=== PATIENT | female | born 1970 | race Caucasian/White ===

== ENCOUNTER 2023-03-10 13:28 | Emergency (ER) | payer BC ==
[2023-03-10 14:47] LABS: Specific Gravity 1.011 (1.005-1.030); Urine Bacteria None Seen /HPF (<20); Urine Bilirubin NEGATIVE (Negative); Urine Blood Trace (Negative); Urine Clarity Clear (Clear); Urine Color Light-Yellow (Yellow); Urine Glucose NEGATIVE (Negative); Urine Protein NEGATIVE (Negative); Urine RBC <5 /HPF (None Seen); Urine Urobilinogen Normal (Normal); Urine pH 5.5 (5.0-7.0)
--- NOTE | 2023-03-10 14:52 | RAD REPORT ---
EXAM DESCRIPTION: CT - Abdomen Pelvis Wo Contrast - 03/10/2023 2:35 pm CLINICAL HISTORY: Abdominal pain COMPARISON: 2014 TECHNIQUE: Computed axial tomography of the abdomen and pelvis was obtained. IV and oral contrast we re not requested. All CT scans are performed using dose optimization technique as appropriate and may include automated exposure control or mA/KV adjustment according to patient size. FINDINGS: The evaluation of solid organs, vessels and bowel is limited secondary to the lack of con trast administration. The liver, spleen, pancreas, adrenals and kidneys appear grossly normal. Large amount stool within the colon. No evidence diverticulitis. No adnexal mass. Hysterectomy. Cholecystectomy IMPRESSION: Large amount of stool within the colon
[2023-03-10] MEDS ORDERED: FENTANYL CITR 100 MCG/2 ML ONE (14:56)
[2023-03-10] MEDS ORDERED: NA CHLORIDE 0.9% 1,000 ML ONE (14:57)
[2023-03-10] MEDS ORDERED: ONDANSETRON 4 MG/2 ML VIAL ONE ×2 (14:57→19:07)
[2023-03-10 15:06] LABS: Absolute Lymphocytes (CBC) 2.9 K/uL (0.7-4.9); Hematocrit 35.9 % (36.0-45.0); Lymphocytes % 44.1 % (15.3-44.8); MCV 79.8 fL (80-100); MPV 7.4 fL (7.6-11.3); RBC Red Blood Cell Count 4.51 M/uL (3.86-4.86)
[2023-03-10 15:33] LABS: Albumin 4.3 g/dL (3.4-5.0); Bilirubin Total 0.5 mg/dL (0.2-1.0); Potassium 2.8 mEq/L (3.5-5.1)
[2023-03-10] MEDS ORDERED: LACTULOSE 20 GM/30 ML UCUP ONE (16:32)
[2023-03-10] MEDS ORDERED: FLEET ENEMA ADULT PR ONE (16:32)
[2023-03-10] MEDS ORDERED: POTASSIUM CL SA 10 MEQ TAB PO ONE (16:54)
[2023-03-10] MEDS ORDERED: MAGNESIUM CITRATE 300 ML BOT ONE (18:02)
[2023-03-10] MEDS ORDERED: BISACODYL 10 MG RECTAL SUPP ONE (19:06)
[2023-03-10] MEDS ORDERED: PROMETHAZINE INJ 25 MG/ML AMP ONE (19:18)
--- NOTE | 2023-03-10 21:12 | ER ---
Nurse's Notes [facility] Name: Miriam Renee Age: 52 yrs Sex: Female : 1970 Arrival Date: 03/10/2023 Time: 13:28 Bed 14 Private MD: Diagnosis: Constipation, unspecified Presentation: 03/10 14:07 Chief complaint: Patient states: N/V R sided abdominal pain, constipation, chills, strange ph w/ urination and vaginal spotting x 1 week. Coronavirus screen: Vaccine status: Patient reports being unvaccinated. Ebola Screen: No symptoms or risks identified at this time. Initial Sepsis Screen: Does the patient meet any 2 criteria? No. Patient's initial sepsis screen is negative. Does the patient have a suspected source of infection? No. Patient's initial sepsis screen is negative. Risk Assessment: Do you want to hurt yourself or someone else? Patient reports no desire to harm self or others. Onset of symptoms was March 10, 2023. 14:07 Method Of Arrival: Ambulatory ph 14:07 Acuity: EDY 3 ph Historical: - Allergies: 14:10 NSAIDS (Non-Steroidal Anti-Inflammatory Drug); ph 14:10 Aspirin; ph 14:10 Hydroxychloroquine; ph 14:10 Iodinated Contrast Media - IV Dye; ph 14:10 Iodine; ph 14:10 Imitrex; ph - Immunization history:: Adult Immunizations unknown. - Social history:: Smoking status: Patient denies any tobacco usage or history of. - Family history:: not pertinent. Screenin:00 [facility] ED Fall Risk Assessment (Adult) History of falling in the last 3 months, nj1 including since admission No falls in past 3 months (0 pts) Confusion or Disorientation No (0 pts) Intoxicated or Sedated No (0 pts) Impaired Gait No (0 pts) Mobility Assist Device Used No (0 pt) Altered Elimination No (0 pt) Score/Fall Risk Level 0 - 2 = Low Risk Oriented to surroundings, Maintained a safe environment, Hourly rounding (assess needs \T\ fall precautionary measures) done. Abuse screen: Denies threats or abuse. Denies injuries from another. Nutritional screening: No deficits noted. Nutritional screening: No deficits noted. 15:02 Tuberculosis screening: No symptoms or risk factors identified. [facility] Assessment: 14:50 General: Appears in no apparent distress. uncomfortable, Behavior is calm, cooperative, nj1 appropriate for age. Pain: Complains of pain in abdomen Pain currently is 10 out of 10 on a pain scale. Neuro: Level of Consciousness is awake, alert, obeys commands, Oriented to person, place, time, situation. Cardiovascular: Patient's skin is warm and dry. Respiratory: Airway is patent Respiratory effort is even, unlabored. GI: Reports nausea, vomiting. 16:24 Reassessment: No changes from previously documented assessment. Patient and/or family ll1 updated on plan of care and expected duration. Pain level reassessed. Patient is alert, oriented x 3, equal unlabored respirations, skin warm/dry/pink. 16:49 Reassessment: No changes from previously documented assessment. Patient and/or family ll1 updated on plan of care and expected duration. Pain level reassessed. Patient is alert, oriented x 3, equal unlabored respirations, skin warm/dry/pink. 16:58 Reassessment: No changes from previously documented assessment. Patient and/or family ll1 updated on plan of care and expected duration. Pain level reassessed. 18:00 Reassessment: Patient appears in no apparent distress at this time. No changes from nj1 previously documented assessment. Patient and/or family updated on plan of care and expected duration. Pain level reassessed. Patient is alert, oriented x 3, equal unlabored respirations, skin warm/dry/pink. 19:00 Reassessment: Patient appears in no apparent distress at this time. No changes from nj1 previously documented assessment. Patient and/or family updated on plan of care and expected duration. Pain level reassessed. Patient is alert, oriented x 3, equal unlabored respirations, skin warm/dry/pink. 19:59 Reassessment: Patient appears in no apparent distress at this time. No changes from nj1 previously documented assessment. Patient and/or family updated on plan of care and expected duration. Pain level reassessed. Patient is alert, oriented x 3, equal unlabored respirations, skin warm/dry/pink. 22:11 Reassessment: Pt took Golytely home. Per Dr. German, pt Ok to take home and take. cm10 Charge nurse and powerhouse electrician aware. Pt instructed on how to take at home. Vital Signs: 14:07 BP 143 / 79; Pulse 98; Resp 20; Temp 99.5; Pulse Ox 95% ; Weight 70.31 kg; Height 5 ft. ph 5 in. ; Pain 10/10; 15:35 Pain 9/10; nj1 16:57 BP 145 / 73; Pulse 81; Pulse Ox 97% on R/A; ll1 18:00 BP 134 / 74; Pulse 87; Resp 17; Pulse Ox 95% on R/A; nj1 19:00 BP 135 / 59; Pulse 91; Resp 18; Pulse Ox 96% on R/A; Pain 9/10; nj1 19:56 BP 140 / 85; Pulse 86; Resp 16; Pulse Ox 97% on R/A; Pain 9/10; nj1 20:00 BP 131 / 80; Pulse 84; Resp 16; Pulse Ox 97% on R/A; cm10 22:12 BP 125 / 74; Pulse 84; Resp 16; Pulse Ox 96% ; cm10 14:07 Body Mass Index 25.79 (70.31 kg, 165.1 cm) ph 14:07 Pain Scale: Adult ph 15:35 Pain Scale: Adult nj1 19:00 Pain Scale: Adult nj1 19:56 Pain Scale: Adult nj1 ED Course: 13:33 Patient arrived in ED. kj1 13:36 Arm band placed on. ll1 13:46 Wojciech Stone MD is Attending Physician. rt 14:10 Triage completed. ph 14:21 Alyx Weinberg, RN is Primary Nurse. nj1 14:37 CT Abd/Pelvis - Without Contrast In Process Unspecified. EDMS 14:45 Inserted saline lock: 22 gauge in right forearm, using aseptic technique. Blood ds4 collected. 14:50 Provided Education on: fall precautions. nj1 14:50 Patient has correct armband on for positive identification. Bed in low position. Call [facility] light in reach. Adult w/ patient. 21:11 Luis Armando Harvey MD is Referral Physician. cp 22:00 No provider procedures requiring assistance completed. IV discontinued, intact, cm10 bleeding controlled, No redness/swelling at site. Pressure dressing applied. Administered Medications: 14:53 Drug: NS 0.9% IV 1000 ml Route: IV; Rate: 1 bolus; Site: right forearm; [facility] 16:31 Follow up: Response: No adverse reaction; IV Status: Completed infusion; IV Intake: ll1 1000ml 14:54 Drug: Ondansetron IVP 4 mg Route: IVP; Site: right forearm; nj1 16:30 Follow up: Response: No adverse reaction ll1 14:56 Drug: fentaNYL (PF) IVP 100 mcg Route: IVP; Site: right forearm; nj1 15:35 Follow up: Pain 9/10 Adult; Response: No adverse reaction; Pain is decreased nj1 16:30 Drug: Lactulose PO 30 grams Volume: 45 ml; Route: PO; ll1 17:50 Follow up: Response: No adverse reaction db 16:30 Drug: Fleet Enema RI 133 ml Route: RI; ll1 17:50 Follow up: Response: No adverse reaction db 16:49 Drug: Potassium Chloride PO 40 mEq Route: PO; ll1 17:50 Follow up: Response: No adverse reaction db 17:57 Drug: Magnesium Citrate PO Liquid 300 ml Route: PO; ll1 18:54 Follow up: Response: No adverse reaction nj1 19:04 Drug: Dulcolax RI Suppository 10 mg Route: RI; nj1 20:03 Follow up: Response: No adverse reaction; Other; No BM yet nj1 19:11 Drug: Promethazine IVP 12.5 mg Route: IVP; Site: right forearm; nj1 20:03 Follow up: Response: No adverse reaction; Nausea is decreased nj1 19:19 Not Given (Phenergan ordered insteadd): Ondansetron IVP 4 mg IVP once; over 2 minutes nj1 22:08 Drug: Golytely 240 ml Route: PO; cm10 22:10 Follow up: Response: No adverse reaction cm10 Medication: 22:01 VIS not applicable for this client. cm10 Intake: 16:31 IV: 1000ml; Total: 1000ml. ll1 Outcome: 21:12 Discharge ordered by . cp 22:12 Discharged to home ambulatory, with family. cm10 22:12 Condition: good 22:12 Discharge instructions given to patient, Instructed on discharge instructions, follow up and referral plans. medication usage, Demonstrated understanding of instructions, follow-up care, medications, Prescriptions given X 2. 22:12 Patient left the ED. cm10 Signatures: Dispatcher [employer] EDMS Tyree Walden ds4 Maddy Shin RN RN ph Lorenzo Shafer PA PA Liv Tyler kj1 Patsy Segundo, RN RN ll1 Delores Goodwin RN RN db Wojciech Stone MD MD rt Alyx Weinberg RN RN nj1 Candis Lugo RN RN cm10 Corrections: (The following items were deleted from the chart) 20:04 19:56 BP 140 / 85; Pulse 86bpm; Resp 16bpm; Pulse Ox 97% RA; nj1 nj1
--- NOTE | 2023-03-10 21:13 | EDPHYS ---
Physician Documentation [facility] Name: Miriam Renee Age: 52 yrs Sex: Female : 1970 Arrival Date: 03/10/2023 Time: 13:28 Bed 14 Private MD: ED Physician Wojciech Stone HPI: 03/10 16:05 This 52 yrs old Female presents to ER via Ambulatory with complaints of Nausea/Vomiting.rt 16:05 Patient presents to the ED with 1 week of right-sided abdominal pain, nausea, vomiting. rt Patient states that she is constipated, has not had a good bowel movement reportedly 3 weeks. She reports that she has had vaginal spotting despite having had a prior hysterectomy. Reports a small amount of hematuria, none currently. Symptoms are moderate severity, aching nature, nonradiating, no other aggravating alleviating factors.. Historical: - Allergies: 14:10 NSAIDS (Non-Steroidal Anti-Inflammatory Drug); ph 14:10 Aspirin; ph 14:10 Hydroxychloroquine; ph 14:10 Iodinated Contrast Media - IV Dye; ph 14:10 Iodine; ph 14:10 Imitrex; ph - Immunization history:: Adult Immunizations unknown. - Social history:: Smoking status: Patient denies any tobacco usage or history of. - Family history:: not pertinent. ROS: 16:05 Constitutional: Negative for fever, chills, and weight loss, Cardiovascular: Negative rt for chest pain, palpitations, and edema, Respiratory: Negative for shortness of breath, cough, wheezing, and pleuritic chest pain, MS/Extremity: Negative for injury and deformity, Skin: Negative for injury, rash, and discoloration, Neuro: Negative for headache, weakness, numbness, tingling, and seizure, Psych: Negative for depression, anxiety, suicide ideation, homicidal ideation, and hallucinations. 16:05 Abdomen/GI: Positive for abdominal pain, nausea and vomiting, constipation. 16:05 : Positive for hematuria, burning with urination. Exam: 16:05 Constitutional: This is a well developed, well nourished patient who is awake, alert, rt and in no acute distress. Head/Face: Normocephalic, atraumatic. Chest/axilla: Normal chest wall appearance and motion. Nontender with no deformity. No lesions are appreciated. Cardiovascular: Regular rate and rhythm with a normal S1 and S2. No gallops, murmurs, or rubs. Normal PMI, no JVD. No pulse deficits. Respiratory: Lungs have equal breath sounds bilaterally, clear to auscultation and percussion. No rales, rhonchi or wheezes noted. No increased work of breathing, no retractions or nasal flaring. Skin: Warm, dry with normal turgor. Normal color with no rashes, no lesions, and no evidence of cellulitis. MS/ Extremity: Pulses equal, no cyanosis. Neurovascular intact. Full, normal range of motion. Neuro: Awake and alert, GCS 15, oriented to person, place, time, and situation. Cranial nerves II-XII grossly intact. Motor strength 5/5 in all extremities. Sensory grossly intact. Cerebellar exam normal. Normal gait. Psych: Awake, alert, with orientation to person, place and time. Behavior, mood, and affect are within normal limits. 16:05 Abdomen/GI: Tenderness diffusely, no rebound, guarding, distention. Vital Signs: 14:07 BP 143 / 79; Pulse 98; Resp 20; Temp 99.5; Pulse Ox 95% ; Weight 70.31 kg; Height 5 ft. ph 5 in. ; Pain 10/10; 15:35 Pain 9/10; nj1 16:57 BP 145 / 73; Pulse 81; Pulse Ox 97% on R/A; ll1 18:00 BP 134 / 74; Pulse 87; Resp 17; Pulse Ox 95% on R/A; nj1 19:00 BP 135 / 59; Pulse 91; Resp 18; Pulse Ox 96% on R/A; Pain 9/10; nj1 19:56 BP 140 / 85; Pulse 86; Resp 16; Pulse Ox 97% on R/A; Pain 9/10; nj1 20:00 BP 131 / 80; Pulse 84; Resp 16; Pulse Ox 97% on R/A; cm10 22:12 BP 125 / 74; Pulse 84; Resp 16; Pulse Ox 96% ; cm10 14:07 Body Mass Index 25.79 (70.31 kg, 165.1 cm) ph 14:07 Pain Scale: Adult ph 15:35 Pain Scale: Adult nj1 19:00 Pain Scale: Adult nj1 19:56 Pain Scale: Adult nj1 MDM: 14:12 Patient medically screened. rt 03/10 14:23 Order name: CBC with Diff; Complete Time: 15:33 rt 03/10 14:23 Order name: CMP; Complete Time: 15:33 rt 03/10 14:23 Order name: Lipase; Complete Time: 15:33 rt 03/10 14:23 Order name: Urinalysis w/ reflexes; Complete Time: 14:54 rt 03/10 14:23 Order name: CT Abd/Pelvis - Without Contrast; Complete Time: 14:54 rt 03/10 14:23 Order name: IV Saline Lock; Complete Time: 14:43 rt 03/10 14:23 Order name: Labs collected and sent; Complete Time: 14:43 rt 03/10 19:46 Order name: Misc. Order: soap suds enema; Complete Time: 21:26 cp Administered Medications: 14:53 Drug: NS 0.9% IV 1000 ml Route: IV; Rate: 1 bolus; Site: right forearm; nj1 16:31 Follow up: Response: No adverse reaction; IV Status: Completed infusion; IV Intake: ll1 1000ml 14:54 Drug: Ondansetron IVP 4 mg Route: IVP; Site: right forearm; nj1 16:30 Follow up: Response: No adverse reaction ll1 14:56 Drug: fentaNYL (PF) IVP 100 mcg Route: IVP; Site: right forearm; nj1 15:35 Follow up: Pain 9/10 Adult; Response: No adverse reaction; Pain is decreased nj1 16:30 Drug: Lactulose PO 30 grams Volume: 45 ml; Route: PO; ll1 17:50 Follow up: Response: No adverse reaction db 16:30 Drug: Fleet Enema OK 133 ml Route: OK; ll1 17:50 Follow up: Response: No adverse reaction db 16:49 Drug: Potassium Chloride PO 40 mEq Route: PO; ll1 17:50 Follow up: Response: No adverse reaction db 17:57 Drug: Magnesium Citrate PO Liquid 300 ml Route: PO; ll1 18:54 Follow up: Response: No adverse reaction nj1 19:04 Drug: Dulcolax OK Suppository 10 mg Route: OK; nj1 20:03 Follow up: Response: No adverse reaction; Other; No BM yet nj1 19:11 Drug: Promethazine IVP 12.5 mg Route: IVP; Site: right forearm; nj1 20:03 Follow up: Response: No adverse reaction; Nausea is decreased nj1 19:19 Not Given (Phenergan ordered insteadd): Ondansetron IVP 4 mg IVP once; over 2 minutes nj1 22:08 Drug: Golytely 240 ml Route: PO; cm10 22:10 Follow up: Response: No adverse reaction cm10 Disposition Summary: 03/10/23 21:12 Discharge Ordered Location: Home cp Problem: an acute exacerbation cp Symptoms: have improved cp Condition: Stable cp Diagnosis - Constipation, unspecified cp Followup: cp - With: Luis Armando Harvey MD - When: 2 - 3 days - Reason: Recheck today's complaints Discharge Instructions: - Discharge Summary Sheet cp - Constipation, Adult cp Forms: - Medication Reconciliation Form cp - Thank You Letter cp - Antibiotic Education cp - Prescription Opioid Use cp - Patient Portal Instructions cp Prescriptions: - Golytely [id number] -5.86 gram Oral Recon Soln - take 240 milliliter by ORAL route every 10 minutes until fecal effluent is cp clear; 4000 milliliter; Refills: 0, Product Selection Permitted - promethazine 25 mg Oral Tablet - take 1 tablet by ORAL route every 6 hours As needed; 20 tablet; Refills: 0, cp Product Selection Permitted Signatures: Dispatcher [employer] Maddy Johnson, RN RN Lorenzo Mclean PA PA cp Patsy Segundo RN RN ll1 Wojciech Stone MD MD rt Alyx Weinberg RN RN nj1 Candis Lugo RN RN cm10 Delores Goodwin RN db
[2023-03-10] MEDS ORDERED: GOLYTELY 4000 ML ONE (22:12)
[2023-03-10 22:48] VITALS: TEMP 99.5
[2023-03-10 22:59] VITALS: BP 125/74; O2SAT 96
== END 2023-03-10 22:12 | disposition home or self-care (01) ==
LOC: ER 13:28
DX: K59.00 Constipation, unspecified (principal); R11.2 Nausea with vomiting, unspecified; Z88.6 Allergy status to analgesic agent; Z88.8 Allergy status to other drugs, medicaments and biological substances; Z91.041 Radiographic dye allergy status; Z91.048 Other nonmedicinal substance allergy status
CPT/HCPCS: 85025; 81001; 36415; 83690; 80053; 74176; J2550; J3010; J2405 ×2; J7030; 96361; 96374; 96375; 99284

== ENCOUNTER 2024-11-20 23:44 | Emergency (ER) | payer BC ==
--- OUTSIDE RECORDS SUMMARY | 2024-11-20 23:46 | XMS REPORT | Continuity of Care Document ---
Author Name Unknown Address [address] [facility] [place] [address] Organization [facility] [place] Address [address] [facility] [place] [address] Care Team Providers Care Travel Consultant Name Role Phone Molly Reed Primary Care Physician [phone] Collin Farrar MD Attending Clinician [phone] COLLIN FARRAR Attending Clinician Unaroderick nix Doctor Unassigned, Mondamin Attending Clinician U NEMO Hanna Attending Clinician Unavailable NEMO ALEJANDRE Attending Clinician Unavailable WILL BUSTILLOS Attending Clinician Unavailable NEMO ALEJANDRE Admitting Clinician Unavailable Payers Payer Name Policy Type Policy Number Effective Date Expirati on Date Source Problems Condition Name Condition Details Condition Category Status Onset Date Resolution Date Last Treatment Date Treating Clinician Comments Source Anxiety Anxiety Disease Active 04-28 00:00: 00 [facility] Degenerati on of lumbar interverte bral disc Degenerati on of lumbar interverte bral disc Disease Active 04-28 00:00: 00 [facility] Depressive disorder Depressive disorder Disease Active 04-28 00:00: 00 [facility] Neck pain Neck pain Disease Active 04-28 00:00: 00 [facility] Post-radha ectomy syndrome Post-radha ectomy syndrome Disease Active 04-28 00:00: 00 [facility] Spasm of back muscles Spasm of back muscles Disease Active 9 00:00: 00 [facility] Systemic lupus erythemato tonia Systemic lupus erythemato tonia Disease Active 2021-08 2-19 00:00: 00 [facility] 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 Disease Active 5-10 00:00: 00 [facility] Swelling of hand Swelling of hand Disease Active 4-11 00:00: 00 [facility] Lumbar spondylosi s Lumbar spondylosi s Disease Active 3-15 00:00: 00 [facility] Subluxatio n of cervical vertebra Subluxatio n of cervical vertebra Disease Active 6-25 00:00: 00 [facility] Allergies, Adverse Reactions, Alerts Allergy Name Allergy Type Status Severity Reaction(s) Onset Date Inactive Date Treating Clinician Comments Source IVERMECT IN DRUG INGREDI Active Other-Cmnt 2022-08 00:00: 00 [facility] Ivermect in Drug Allergy Active Other - See comments 2022-08 00:00: 00 [facility] Hydroxyc hloroqui ne Propensi ty to adverse reaction s to drug Active Unknown - See comments 04-28 00:00: 00 Suicidal Thoughts [facility] Sumatrip frausto Propensi ty to adverse reaction s to drug Active Unknown - See comments 04-28 00:00: 00 Side Effect - Unkown [facility] Iodine Propensi ty to adverse reaction s to drug Active Unknown - See comments 04-28 00:00: 00 Rash [facility] Nsaids (Non-Saad roidal Anti-Inf lammator y Drug) Propensi ty to adverse reaction s to drug Active Unknown - See comments 04-28 00:00: 00 "Free Bleeder" [facility] NSAIDS (NON-SAAD ROIDAL ANTI-INF LAMMATOR Y DRUG) Drug Class Active Unknown-Cmnt 04-28 00:00: 00 [facility] IODINE DRUG INGREDI Active Unknown-Cmnt 04-28 00:00: 00 [facility] SUMATRIP FRAUSTO DRUG INGREDI Active Unknown-Cmnt 04-28 00:00: 00 [facility] HYDROXYC HLOROQUI NE DRUG INGREDI Active Unknown-Cmnt 04-28 00:00: 00 [facility] NO KNOWN ALLERGIE S Drug Class Active [facility] Social History Social Habit Start Date Stop Date Quantity Comments Source Gender [facility] Alcohol intake 2023-07-22 00:00:00 2023-07-22 00:00:00 Ex-drinker (finding) [facility] History of Social function 2023-04-28 00:00:00 2023-04-28 00:00:00 [facility] Tobacco use and exposure 2023-04-28 00:00:00 2023-04-28 00:00:00 Smokeless tobacco non-user [facility] Sex Assigned At 1970 00:00:00 1970 00:00:00 [facility] Smoking Status Start Date Stop Date Source Tobacco smoking consumption unknown [facility] Never smoked tobacco [facility] Medications Ordered Medication Name Filled Medication Name Start Date Stop Date Current Medication? Ordering Clinician Indication Dosage Frequency Signature (SIG) Comments Components Source amLODIPine 10 mg tablet 2022-08 14:55: 44 Yes TAKE ONE (1) TABLET (10 MG) BY MOUTH DAILY. [facility] atenoloL 50 mg tablet 2022-08 14:55: 44 Yes 50mg Take 1 tablet by mouth in the morning. [facility] FLUoxetine (PROZAC) 40 mg capsule 04-28 09:55: 50 Yes 40mg Take 1 capsule by mouth in the morning. [facility] QUEtiapine 100 mg tablet 04-27 00:00: 00 Yes [facility] FENTanyl 50 mcg/hr patch 04-19 00:00: 00 Yes APPLY ONE (1) PATCH TO SKIN EVERY 72 HOURS. [facility] tiZANidine 4 mg tablet 8-28 00:00: 00 Yes TAKE ONE (1) TABLET(S) BY MOUTH THREE TIMES A DAY NEEDED. [facility] BENLYSTA 200 mg/mL AtIn 8-24 00:00: 00 Yes [facility] furosemide 20 mg tablet 8-23 00:00: 00 Yes 20mg Take 1 tablet by mouth in the morning. [facility] foLIC acid 1 mg tablet 8-16 00:00: 00 Yes 1mg Take 1 tablet by mouth in the morning. [facility] methotrexat e 2.5 mg tablet 8-15 00:00: 00 Yes TAKE SIX (6) TABLET(S) BY MOUTH EVERY WEEK. [facility] atorvastati n 80 mg tablet 7-18 00:00: 00 Yes 80mg Take 1 tablet by mouth in the morning. [facility] Vital Signs Vital Name Observation Time Observation Value Comments S lexis Systolic blood pressure 2023-07-22 20:54:00 120 mm[Hg] [facility] Diastolic blood pressure 2023-07-22 20:54:00 76 mm[Hg] [facility] Heart rate 2023-07-22 20:54:00 85 /min [facility] Body temperature 2023-07-22 20:54:00 37.17 Luciana [facility] Respiratory rate 2023-07-22 20:54:00 16 /min [facility] Body height 2023-07-22 20:54:00 165.1 cm [facility] Body weight 2023-07-22 20:54:00 84.777 kg [facility] BMI 2023-07-22 20:54:00 31.10 kg/m2 [facility] Oxygen saturation in Arterial blood by Pulse oximetry 2023-07-22 20:54:00 96 /min [facility] BMI 2023-04-28 15:06:00 30.94 kg/m2 [facility] Oxygen saturation in Arterial blood by Pulse oximetry 2023-04-28 15:06:00 95 /min [facility] Systolic blood pressure 2023-04-28 15:06:00 122 mm[Hg] [facility] Diastolic blood pressure 2023-04-28 15:06:00 74 mm[Hg] [facility] Heart rate 2023-04-28 15:06:00 84 /min [facility] 2023-04-28 15:06:00 19 /min [facility] Body height 2023-04-28 15:06:00 165.1 cm [facility] Body weight 2023-04-28 15:06:00 84.324 kg [facility] Procedures Procedure Date / Time Performed Performing Clinician Source AUTHORIZATION TO RELEASE PHI TO [facility] 2023-07-22 06:01:00 Doctor Unassigned, Mondamin [facility] POCT URINALYSIS AUTO 2023-04-28 15:38:00 Maki Alejandre [facility] Encounters Start Date/Time End Date/Time Encounter Type Admission Type Attending Clinicians Care Facility Care Department Encounter ID Source 2023-07-27 00:00:00 2023-07-27 00:00:00 Telephone Collin Rivers [facility] [id number] 350.1.13.10 [id number] [id number] [facility] 2023-07-23 00:00:00 2023-07-23 00:00:00 Telephone Collin Rivers [facility] [id number] 350.1.13.10 4.2.7.2.686 [id number] [facility] 2023-07-22 14:30:00 2023-07-22 15:18:12 Outpatient R COLLIN RIVERS MARISOL [facility] [id number] [facility] 2023-07-22 14:30:00 2023-07-22 15:18:12 Office Visit Kieranpérez hamlin Collin [facility] [id number] 350.1.13.10 4.2.7.2.686 [id number] [facility] 2023-07-22 00:00:00 2023-07-22 00:00:00 Orders Only Doctor Unassigned, Mondamin [facility] [id number] 350.1.13.10 4.2.7.2.686 [id number] [facility] 2023-06-14 16:30:00 2023-06-14 16:30:00 Outpatient NEMO RODRIGUEZ [facility] [id number] [facility] 2023-06-14 00:00:00 2023-06-14 00:00:00 [facility] [id number] 350.1.13.10 4.2.7.2.686 [id number] [facility] 2023-06-14 00:00:00 2023-06-14 00:00:00 [facility] [id number] 350.1.13.10 4.2.7.2.686 [id number] [facility] 2023-06-08 12:50:25 2023-06-08 23:59:00 Hospital Encounter Maki Alejandreha [facility] [id number] 350.1.13.10 4.2.7.2.686 [id number] [facility] 2023-06-08 12:50:25 2023-06-08 23:59:00 Outpatient R NEMO ALEJANDRE [facility] [id number] [facility] 2023-06-04 14:30:00 2023-06-04 14:30:00 Outpatient R LUCY-ADAN S, COLLIN LUCY-ADAN S, COLLIN [facility] [id number] [facility] 2023-06-04 09:30:00 2023-06-04 09:30:00 Outpatient R ARNAUD S, COLLIN KIERANI S, COLLIN [facility] [id number] [facility] 2023-05-27 00:00:00 2023-05-27 00:00:00 Outpatient Laurie ALEJANDRE [facility]AKI [facility] [id number] [facility] 2023-04-28 10:00:00 2023-04-28 11:00:10 Outpatient Laurie NEMO ALEJANDRE [facility] [id number] [facility] 2023-04-28 10:00:00 2023-04-28 11:00:10 Office Visit Nemo Alejandre [facility] 1..840.114 350.1.13.10 4.2.7.2.686 [id number] [facility] 2023-04-27 00:00:00 2023-04-27 00:00:00 Telephone [place] Nemo [facility] [id number] 350.1.13.10 4.2.7.2.686 [id number] [facility] 2023-03-13 14:07:00 2023-03-13 18:48:00 Emergency E WILL BUSTILLOS [id number] [facility] Results Test Description Test Time Test Comments Results Result Co mments Source [facility] [id number] 15:42:00 * Test Item Value Reference Range Interpretation Comme nts POCT U SP GRAV (test code = 3255) 1.010 mg/dl 1.005-1.025 POCT PH U (test code = 3254) 6.0 mg/dl 5-8 POCT U LEUK EST (test code = 3263) negative Negative - Negative POCT U NIT (test code = 3262) negative Negative - Negati ve POCT U PROT (test code = 3259) negative Negative - Negative POCT U GLU (test code = 3256) negative Negative - Negati ve POCT U KETONE (test code = 3258) negative Negative - Negative POCT U UROBILI (test code = 3260) 0.2 mg/dl 0.2-1 POCT U BILI (test code = 3261) negative Negative - Negative POCT U BLD (test code = 3257) negative Negative - Negati ve POCT U COLOR (test code = 3266) yellow POCT U APPEAR (test code = 3267) clear [facility], [id number] 15:42:00 * Test Item Value Reference Range Interpretation Comme nts POCT U SP GRAV (test code = 3255) 1.010 mg/dl 1.005-1.025 POCT PH U (test code = 3254) 6.0 mg/dl 5-8 POCT U LEUK EST (test code = 3263) negative Negative - Negative POCT U NIT (test code = 3262) negative Negative - Negati ve POCT U PROT (test code = 3259) negative Negative - Negative POCT U GLU (test code = 3256) negative Negative - Negati ve POCT U KETONE (test code = 3258) negative Negative - Negative POCT U UROBILI (test code = 3260) 0.2 mg/dl 0.2-1 POCT U BILI (test code = 3261) negative Negative - Negative POCT U BLD (test code = 3257) negative Negative - Negati ve POCT U COLOR (test code = 3266) yellow POCT U APPEAR (test code = 3267) clear [facility] Notes Date/Time Note Provider Source 2023-04-28 10:00:00 Addended by: SONDRA POWER MA on: 04/28/2023 02:57 PM Modules accepted: Orders [facility] 2023-04-27 16:18:02 Formatting of this n ote might be different from the original. Attempted to contact patient. No answer, VM left. Cecil Avila RN 04/27/2023 4:18 PM [facility] [employer] 2023-04-27 16:17:49 Formatting of this n ote might be different from the original. ----- Message from Nemo Alejandre MD sent at 04/27/2023 3:37 PM CDT ----- Regarding: Please review Karthik, This pt is scheduled to see my on tomorrow at clinic She has abdominal and pelvic pain. Can you please confirm if she has urinary symptoms because if not she will need to see [employer] Thank you! [facility]
[2024-11-21] MEDS ORDERED: droPERidol 5 MG/2 ML VIAL ONE (00:07)
[2024-11-21] MEDS ORDERED: ONDANSETRON 4 MG/2 ML VIAL ONE (00:07)
[2024-11-21] MEDS ORDERED: CEFAZOLIN SODIUM 1 GM/VIAL ONE (00:08)
[2024-11-21] MEDS ORDERED: MORPHINE 4 MG/ML SYR ONE ×2 (00:08→02:05)
[2024-11-21] MEDS ORDERED: KETOROLAC 30 MG/ML INJ ONE (00:08)
[2024-11-21] MEDS ORDERED: NA CHLORIDE 0.9% 100 ML ONE (00:09)
[2024-11-21] MEDS ORDERED: TDAP (DIPHTH,PERTUSS(ACELL),TET VAC) 0.5 ML VIAL IMVAC ONE (00:09)
[2024-11-21] MEDS ORDERED: MIDAZOLAM HCL 0 ML ONE (00:09)
[2024-11-21 00:12] LABS: Absolute Eosinophils 0.1 K/uL (0-0.5); Absolute Lymphocytes (CBC) 2.4 K/uL (0.7-4.9); Absolute Monocytes 0.7 K/uL (0.1-1.3); Absolute Neutrophil 4.4 K/uL (1.8-8.0); Basophils % 0.3 % (0-1.3); Eosinophils % 1.5 % (0-4.4); Hematocrit 32.6 % (36.0-45.0); Hemoglobin 11.4 g/dL (12.0-15.0); Lymphocytes % 31.2 % (15.3-44.8); MCH 29.3 pg (27.0-35.0); MCHC 34.9 g/dL (32.0-36.0); MCV 83.9 fL (80-100); MPV 7.4 fL (7.6-11.3); Monocytes % 9.6 % (3.3-12.3); Neutrophils % 57.4 % (41.7-73.7); Platelets 214 thou/uL (152-406); RBC Red Blood Cell Count 3.89 M/uL (3.86-4.86); Red Cell Distribution Width 14.8 % (12.1-15.2)
[2024-11-21 00:57] LABS: Albumin 3.9 g/dL (3.4-5.0); Albumin/Globulin Ratio 1.3 (1.1-1.8); Anion Gap 5.6 mEq/L (5.0-15.0); Bilirubin Total 0.5 mg/dL (0.2-1.0); Potassium 3.6 mEq/L (3.5-5.1); Protein, Total 6.9 g/dL (6.4-8.2)
[2024-11-21] MEDS ORDERED: METOCLOPRAMIDE 10 MG/2mL INJ ONE (02:04)
--- NOTE | 2024-11-21 02:56 | RAD REPORT ---
EXAM: CT Head and Cervical Spine Without Intravenous Contrast CLINICAL HISTORY: The patient is 54 years old and is Female; CONFUSED TECHNIQUE: Axial computed tomography images of the head/brain and cervical spine without intravenous contrast. Sagittal and coronal reformatted images were created and reviewed. This CT exam was performed using one or more of the following dose reduction techniques: automated exposure control, adjustmen t of the mA and/or kV according to patient size, and/or use of iterative reconstruction technique. COMPARISON: No relevant prior studies available. FINDINGS: BRAIN: Unremarkable. No hemorrhage. No significant white matter disease. No edema. VENTRICLES: Unremarkable. No ventriculomegaly. SKULL: No acute fracture. SINUSES: Unremarkable as visualized. No acute sinusitis. MASTOID AIR CELLS: Unremarkable as visualized. No mastoid effusion. VERTEBRAE: Anterolisthesis of C3 on C4 secondary to degenerative facet arthropathy is noted. The vertebral body heights and alignment are otherwise maintained. DISCS/SPINAL CANAL/NEURAL FORAMINA: Evidence of anterior cervical disc fusion at C5-C6 is present . The hardware is engaged. Minimal intervertebral disc space narrowing with osteophyte formation at C4-C5 and C6-C7 is present. There is no significant canal stenosis or neural foraminal narrowing. Facet arthropathy throughout the cervical spine is present. SOFT TISSUES: Laceration to the right frontal scalp is present. LUNG APICES: The lung apices are clear. IMPRESSION: 1. No acute intracranial findings. Right frontal scalp laceration. 2. Spondylosis of the cervical spine without acute findings. Electronically signed by: Ana Rosa Alcocer MD 11/21/2024 02:51 AM CDT RP Due to temporary technical issues with the PACS/MyMosa reporting system, reports are being john d by the in-house radiologist without review as a courtesy to ensure prompt reporting the interpreting radiologist is fully responsible for the content of the report. Transcribed Date/Time: 11/21/2024 2:55 AM
--- NOTE | 2024-11-21 02:58 | RAD REPORT ---
EXAM: CT Chest, Abdomen and Pelvis Without Intravenous Contrast CLINICAL HISTORY: The patient is 54 years old and is Female; fall, back injury TECHNIQUE: Axial computed tomography images of the chest, abdomen and pelvis without intravenous contrast. S agittal and coronal reformatted images were created and reviewed. This CT exam was performed using one or more of the following dose reduction techniques: automated exposure control, adjustmen t of the mA and/or kV according to patient size, and/or use of iterative reconstruction technique. COMPARISON: No relevant prior studies available. FINDINGS: CHEST: LUNGS: Minimal dependent densities in the lung bases are present. The lungs are otherwise well- inflated and clear. PLEURAL SPACE: Unremarkable. No significant effusion. No pneumothorax. HEART: No cardiomegaly. No pericardial effusion. MEDIASTINUM: The distal esophagus is fluid-filled. ABDOMEN: LIVER: Homogeneous without focal mass. GALLBLADDER AND BILE DUCTS: Surgical clips are present in the right upper quadrant, consistent wi th previous cholecystectomy. PANCREAS: Unremarkable. No ductal dilation. SPLEEN: Unremarkable. ADRENALS: Unremarkable. No mass. KIDNEYS AND URETERS: No obstructing stones. No hydronephrosis. No perinephric fluid. STOMACH AND BOWEL: The stomach is minimally distended with food contents. The small bowel is rela tively normal in caliber. Stool is present throughout colon. There is no mucosal thickening or evidence of obstruction. PELVIS: APPENDIX: No findings to suggest acute appendicitis. BLADDER: The bladder is well distended. No stones. REPRODUCTIVE: The patient is status post hysterectomy. CHEST, ABDOMEN and PELVIS: INTRAPERITONEAL SPACE: Trace free fluid is present within the pelvis which is likely physiologic. No free air. BONES/JOINTS: There is no acute fracture of the visualized axial and appendicular skeleton. The v ertebral body heights and alignment are maintained. SOFT TISSUES: A tiny fat-containing umbilical hernia is present. VASCULATURE: Calcified phleboliths are present within the pelvis. No aortic aneurysm. LYMPH NODES: Unremarkable. No enlarged lymph nodes. IMPRESSION: No evidence of solid organ injury or traumatic bony findings on this noncontrasted CT of the chest, abdomen, and pelvis. Electronically signed by: Ana Rosa Alcocer MD 11/21/2024 02:54 AM CDT RP Due to temporary technical issues with the PACS/Vinny reporting system, reports are being john d by the in-house radiologist without review as a courtesy to ensure prompt reporting the interpreting radiologist is fully responsible for the content of the report. Transcribed Date/Time: 11/21/2024 2:58 AM
--- NOTE | 2024-11-21 03:20 | RAD REPORT ---
EXAM: XR Right Knee, 3 Views CLINICAL HISTORY: The patient is 54 years old and is Female; right knee contusion TECHNIQUE: Three views of the right knee. COMPARISON: No relevant prior studies available. FINDINGS: BONES/JOINTS: Unremarkable. No acute fracture. No dislocation. SOFT TISSUES: Unremarkable. IMPRESSION: Normal right knee radiographs. Electronically signed by: Ana Rosa Alcocer MD 11/21/2024 02:51 AM CDT RP Due to temporary technical issues with the PACS/V[employer]lect reporting system, reports are being john d by the in-house radiologist without review as a courtesy to ensure prompt reporting the interpreting radiologist is fully responsible for the content of the report. Transcribed Date/Time: 11/21/2024 3:20 AM
[2024-11-21] MEDS ORDERED: MIDAZOLAM HCL 5 ML ONE (04:38)
[2024-11-21] MEDS ORDERED: LIDOCAINE 1% 20 ML MDV ONE (04:38)
[2024-11-21] MEDS ORDERED: ETOMIDATE 20 MG/10 ML VIAL IV ONE ×2 (04:38→05:04)
--- NOTE | 2024-11-21 05:50 | ER ---
Nurse's Notes [facility] Name: Miriam Renee Age: 54 yrs Sex: Female : 1970 Arrival Date: 11/20/2024 Time: 23:44 Bed 4 Private MD: Diagnosis: Concussion with loss of consciousness of unspecified duration;Complex forehead and scalp laceration Presentation: 11/20 23:47 Chief complaint: Patient states: I was walking and tripped on a rug, I hit my head on jb4 the garage door. I do not know how long I was out. I woke up and saw a lot of blood. Coronavirus screen: At this time, the client does not indicate any symptoms associated with coronavirus-19. Ebola Screen: No symptoms or risks identified at this time. Initial Sepsis Screen: Does the patient meet any 2 criteria? No. Patient's initial sepsis screen is negative. Does the patient have a suspected source of infection? No. Patient's initial sepsis screen is negative. Risk Assessment: Do you want to hurt yourself or someone else? Patient reports no desire to harm self or others. Onset of symptoms was November 20, 2024. Transition of care: patient was not received from another setting of care. 23:47 Method Of Arrival: Ambulatory jb4 23:47 Acuity: EDY 2 jb4 Triage Assessment: 11/21 06:18 General: see nursing assessment. 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 - Infectious Disease History:: Denies. - Social history:: Smoking status: Patient denies any tobacco usage or history of. - Family history:: not pertinent. Screenin/01 00:33 [facility] ED Fall Risk Assessment (Adult) History of falling in the last 3 months, bm8 including since admission Yes- single mechanical fall (1 pt) Confusion or Disorientation No (0 pts) Intoxicated or Sedated No (0 pts) Impaired Gait No (0 pts) Mobility Assist Device Used No (0 pt) Altered Elimination No (0 pt) Score/Fall Risk Level 0 - 2 = Low Risk Oriented to surroundings, Maintained a safe environment, Educated pt \T\ family on fall prevention, incl call for assistance when getting out of bed, Assessed \T\ reinforced patient's understanding of fall precautions, Hourly rounding (assess needs \T\ fall precautionary measures) done, Used ambulatory aids as needed (educated on \T\ assisted with), Used gait belt as appropriate. Abuse screen: Denies threats or abuse. Nutritional screening: No deficits noted. Tuberculosis screening: No symptoms or risk factors identified. Assessment: 11/20 23:58 General: Appears in no apparent distress. uncomfortable, Behavior is cooperative, lg3 anxious. Pain: Complains of pain in head Pain currently is 9 out of 10 on a pain scale. Neuro: No deficits noted. Milner Agitation-Sedation Scale (RASS): 0 - Alert and Calm Level of Consciousness is awake, alert, obeys commands, Oriented to person, place, time, situation. Cardiovascular: No deficits noted. Denies chest pain, shortness of breath, Capillary refill < 3 seconds Clubbing of nail beds is absent JVD is absent Patient's skin is warm and dry. Respiratory: No deficits noted. Airway is patent Respiratory effort is even, unlabored, Respiratory pattern is regular, symmetrical. GI: No deficits noted. No signs and/or symptoms were reported involving the gastrointestinal system. : No signs and/or symptoms were reported regarding the genitourinary system. EENT: No deficits noted. No signs and/or symptoms were reported regarding the EENT system. Derm: Skin is intact, is healthy with good turgor, Skin is dry, Skin is normal, Skin temperature is warm Wound noted top of head and forehead. Musculoskeletal: No deficits noted. Circulation, motion, and sensation intact. Range of motion: intact in all extremities. Injury Description: Laceration sustained to head is clean, 2.6 to 7.5 cm long, bleeding moderately, moderate bleeding noted at this time. 11/21 00:56 Reassessment: Patient appears in no apparent distress at this time. No changes from lg3 previously documented assessment. Patient and/or family updated on plan of care and expected duration. Pain level reassessed. Patient is alert, oriented x 3, equal unlabored respirations, skin warm/dry/pink. 02:10 Reassessment: Patient appears in no apparent distress at this time. Patient and/or bm8 family updated on plan of care and expected duration. Pain level reassessed. Patient is alert, oriented x 3, equal unlabored respirations, skin warm/dry/pink. 03:57 Reassessment: Patient appears in no apparent distress at this time. Patient and/or bm8 family updated on plan of care and expected duration. Pain level reassessed. Patient is alert, oriented x 3, equal unlabored respirations, skin warm/dry/pink. Patient states feeling better. 05:53 Reassessment: Patient appears in no apparent distress at this time. Patient and/or bm8 family updated on plan of care and expected duration. Pain level reassessed. Patient is alert, oriented x 3, equal unlabored respirations, skin warm/dry/pink. pt is back to baseline , prior to conscious sedation procedure. wound has been sutured and dressed. Family informed of how to care for pt post discharge and taught back instructions. Patient states feeling better. Patient states symptoms have improved. Vital Signs: 11/20 23:47 BP 156 / 87; Pulse 96; Resp 20; Temp 99.2(O); Pulse Ox 95% on R/A; Weight 79.38 kg (R); jb4 Height 5 ft. 6 in. (R); 11/21 00:58 BP 138 / 72; Pulse 74; Resp 18 S; Pulse Ox 98% on R/A; lg3 02:10 BP 132 / 80; Pulse 90; Resp 17; Temp 99.2; Pulse Ox 100% ; Pain 4/10; bm8 03:57 BP 123 / 67; Pulse 77; Resp 18; Temp 99; Pulse Ox 94% ; Pain 3/10; bm8 05:53 BP 149 / 82; Pulse 75; Resp 18; Temp 99; Pulse Ox 96% ; Pain 6/10; bm8 11/20 23:47 Body Mass Index 28.25 (79.38 kg, 167.64 cm) jb4 02:10 Pain Scale: Adult bm8 03:57 Pain Scale: Adult bm8 05:53 Pain Scale: Adult bm8 Silvano Coma Score: 02:10 Eye Response: spontaneous(4). Motor Response: obeys commands(6). Verbal Response: bm8 oriented(5). Total: 15. 03:57 Eye Response: spontaneous(4). Motor Response: obeys commands(6). Verbal Response: bm8 oriented(5). Total: 15. 05:53 Eye Response: spontaneous(4). Motor Response: obeys commands(6). Verbal Response: bm8 oriented(5). Total: 15. 20:49 Eye Response: spontaneous(4). Motor Response: obeys commands(6). Verbal Response: sp4 oriented(5). Total: 15. 20:53 Eye Response: spontaneous(4). Motor Response: obeys commands(6). Verbal Response: sp4 oriented(5). Total: 15. ED Course: 11/20 23:44 Patient arrived in ED. kmf 23:48 Triage completed. jb4 23:48 Arm band placed on right wrist. jb4 23:55 Jose Renee MD is Attending Physician. sp4 23:58 Family accompanied patient. lg3 23:58 Wound care: to laceration located on head was cleaned with soap and water, dressed with lg3 Kerlix, Patient tolerated well. 04/01 00:33 Patient has correct armband on for positive identification. Client placed on continuous bm8 cardiac and pulse oximetry monitoring. NIBP monitoring applied. school bus monitor on. Pulse ox on. NIBP on. Door closed. Noise minimized. Warm blanket given. Verbal reassurance given. Head of bed elevated. 00:33 Inserted saline lock: 20 gauge in right forearm, using aseptic technique. Blood bm8 collected. Flushed with 10 mL NS. Patient maintains SpO2 saturation greater than 95% on room air. 01:08 Head C Spine Mpr Wo Con In Process Unspecified. EDMS 01:22 CT Chest Abdomen Pelvis W/O Contrast In Process Unspecified. EDMS 01:23 Knee Right 3 View XRAY In Process Unspecified. EDMS 02:09 Negro Vicente, RN is Primary Nurse. bm8 04:50 Assist provider with laceration repair on face and forehead and top of head that was bm8 between 12.6 to 20 cm using sutures. Set up tray. Performed by Jose Renee MD Dressed with 4X4s, Kerlix, Patient tolerated well. Assisted provider with: see paper charting for conscious sedation. IV discontinued, intact, bleeding controlled, No redness/swelling at site. Pressure dressing applied. 06:21 Provided Education on: Conscious Sedation, Procedure Consent, post er care of pt, wound bm8 care, suture removal time line. Administered Medications: 00:31 Drug: Boostrix Tdap IM 0.5 ml IM once; as a single dose Route: IM; Site: left deltoid; bm8 00:57 Follow up: Response: (VIS) Vaccine information sheet provided today. Questions and/or lg3 concerns addressed. VIS edition date: Mar 28, 2021.; No adverse reaction 00:31 Drug: ceFAZolin IVPB 1 grams IVPB once Route: IVPB; Site: right forearm; bm8 00:56 Follow up: Response: No adverse reaction; IV Status: Completed infusion; IV Intake: lg3 100ml 00:31 Drug: Droperidol IVP 2.5 mg IVP once Route: IVP; Site: right forearm; bm8 00:56 Follow up: Response: No adverse reaction; Marked relief of symptoms lg3 00:32 Drug: TORadol - Ketorolac IVP 15 mg IVP once Route: IVP; Site: right forearm; bm8 00:57 Follow up: Response: No adverse reaction lg3 00:32 Drug: Ondansetron IVP 4 mg IVP once; over 2 minutes Route: IVP; Site: right forearm; bm8 00:57 Follow up: Response: No adverse reaction lg3 00:32 Drug: morphine IVP or IV 4 mg IVP once over 4 mins Route: IVP; Infused Over: 4 mins; bm8 Site: right forearm; 00:57 Follow up: Response: No adverse reaction lg3 02:10 Drug: morphine IVP or IV 4 mg IVP once over 4 mins Route: IVP; Infused Over: 4 mins; bm8 Site: right forearm; 03:38 Follow up: Response: No adverse reaction bm8 02:10 Drug: metoCLOPramide IVP 10 mg IVP once; over 1 to 2 minutes Route: IVP; Site: right bm8 forearm; 03:38 Follow up: Response: No adverse reaction bm8 04:55 Drug: Etomidate IVP 20 mg IVP once Route: IVP; Site: right forearm; bm8 05:52 Follow up: Response: No adverse reaction bm8 05:03 Drug: Midazolam IVP or IV 5 mg IVP once Route: IVP; Site: right forearm; bm8 06:23 Follow up: Response: No adverse reaction bm8 06:00 Drug: HYDROcodone-acetaminophen PO 5 mg-325 mg 2 tabs PO once Route: PO; bm8 06:18 Follow up: Response: No adverse reaction bm8 06:00 Drug: Ondansetron PO 4 mg PO once Route: PO; bm8 06:18 Follow up: Response: No adverse reaction bm8 06:00 Drug: Trimethoprim-Sulfamethoxazole PO (160 mg-800 mg (DS) 1 tablet PO once Route: PO; bm8 06:18 Follow up: Response: No adverse reaction bm8 Medication: 11/20 23:58 Vaccine Information Statement (VIS) provided today. Questions and/or concerns lg3 addressed. VIS edition date: March 28, 2021. Intake: 11/21 00:56 IV: 100ml; Total: 100ml. lg3 Outcome: 04:50 Discharged to home via wheelchair, with family, bm8 04:50 Condition: stable 04:50 Discharge instructions given to patient, family, Instructed on discharge instructions, follow up and referral plans. no drinking with medication, no driving heavy equipment, medication usage, safety practices, wound care, Demonstrated understanding of instructions, follow-up care, medications, Prescriptions given X 3, 05:49 Discharge ordered by MD. [email or web address] 06:22 Patient left the ED. bm8 Signatures: Dispatcher [employer] EDLive Dent, RN RN jb4 Colleen Ayon RN RN lg3 Jose Renee MD MD sp4 Paola Webb [facility] Negro Vicente RN RN bm8 Corrections: (The following items were deleted from the chart) 06:18 06:17 HYDROcodone-acetaminophen PO 5 mg-325 mg 2 tabs PO bm8 bm8 06:20 00:33 No provider procedures requiring assistance completed. bm8 bm8
--- NOTE | 2024-11-21 05:50 | EDPHYS ---
Physician Documentation [facility] Name: Miriam Renee Age: 54 yrs Sex: Female : 1970 Arrival Date: 11/20/2024 Time: 23:44 Bed 4 Private MD: ED Physician Jose Renee HPI: 11/20 23:55 This 54 yrs old Female presents to ER via Ambulatory with complaints of head sp4 laceration . 11/21 20:49 84-year-old female presents after acute fall in the garage against the garage door. sp4 Presents with large size laceration to the scalp and to the forehead, also reports right lower back pain and headache from acute fall. Reports loss of consciousness for unknown duration. 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 - Infectious Disease History:: Denies. - Social history:: Smoking status: Patient denies any tobacco usage or history of. - Family history:: not pertinent. ROS: 11/21 20:49 Constitutional: Negative for fever, chills, and weight loss, positive headache, sp4 positive scalp laceration, positive forehead laceration, positive right lower back pain, positive head injury with LOC All other systems are negative, Exam: 20:49 Constitutional: This is a well developed, well nourished patient who is awake, alert, sp4 patient presents covered in blood with mild to moderate distress secondary to headache and acute forehead laceration. Head/Face: Normocephalic, large size right forehead laceration which extends from the eyebrow into right frontal parietal scalp. Bleeding controlled with bandage on arrival. Eyes: Pupils equal round and reactive to light, extra-ocular motions intact. Lids and lashes normal. Conjunctiva and sclera are not injected. Cornea within normal limits. Periorbital areas with no swelling, redness, or edema. ENT: Nares patent. No nasal discharge, no septal abnormalities noted. Tympanic membranes are normal and external auditory canals are clear. Oropharynx with no redness, swelling, or masses, exudates, or evidence of obstruction, uvula midline. Mucous membranes moist. Neck: Trachea midline, no thyromegaly or masses palpated, and no cervical lymphadenopathy. Supple, full range of motion without nuchal rigidity, or vertebral point tenderness. Chest/axilla: Normal chest wall appearance and motion. Nontender with no deformity. No lesions are appreciated. Cardiovascular: Regular rate and rhythm with a normal S1 and S2. No gallops, murmurs, or rubs. Normal PMI, no JVD. No pulse deficits. Respiratory: Lungs have equal breath sounds bilaterally, clear to auscultation and percussion. No rales, rhonchi or wheezes noted. No increased work of breathing, no retractions or nasal flaring. Abdomen/GI: Soft, with normal bowel sounds. No distension or tympany. No guarding or rebound. No evidence of tenderness throughout. Back: No spinal tenderness. No costovertebral tenderness. Skin: Warm, dry with normal turgor. Normal color with no rashes, no lesions, and no evidence of cellulitis. MS/ Extremity: Pulses equal, no cyanosis. Neurovascular intact. Full, normal range of motion. Neuro: Awake and alert, GCS 15, oriented to person, place, time, and situation. Cranial nerves II-XII grossly intact. Motor strength 5/5 in all extremities. Sensory grossly intact. Psych: Awake, alert, with orientation to person, place and time. Behavior, mood, and affect are within normal limits Vital Signs: 11/20 23:47 BP 156 / 87; Pulse 96; Resp 20; Temp 99.2(O); Pulse Ox 95% on R/A; Weight 79.38 kg (R); jb4 Height 5 ft. 6 in. (R); 11/21 00:58 BP 138 / 72; Pulse 74; Resp 18 S; Pulse Ox 98% on R/A; lg3 02:10 BP 132 / 80; Pulse 90; Resp 17; Temp 99.2; Pulse Ox 100% ; Pain 4/10; bm8 03:57 BP 123 / 67; Pulse 77; Resp 18; Temp 99; Pulse Ox 94% ; Pain 3/10; bm8 05:53 BP 149 / 82; Pulse 75; Resp 18; Temp 99; Pulse Ox 96% ; Pain 6/10; bm8 11/20 23:47 Body Mass Index 28.25 (79.38 kg, 167.64 cm) jb4 02:10 Pain Scale: Adult bm8 03:57 Pain Scale: Adult bm8 05:53 Pain Scale: Adult bm8 Silvano Coma Score: 02:10 Eye Response: spontaneous(4). Motor Response: obeys commands(6). Verbal Response: bm8 oriented(5). Total: 15. 03:57 Eye Response: spontaneous(4). Motor Response: obeys commands(6). Verbal Response: bm8 oriented(5). Total: 15. 05:53 Eye Response: spontaneous(4). Motor Response: obeys commands(6). Verbal Response: bm8 oriented(5). Total: 15. 20:49 Eye Response: spontaneous(4). Motor Response: obeys commands(6). Verbal Response: sp4 oriented(5). Total: 15. 20:53 Eye Response: spontaneous(4). Motor Response: obeys commands(6). Verbal Response: sp4 oriented(5). Total: 15. Procedures: 05:46 Procedural sedation: Pre-procedure assessment: the patient has been NPO 4 hour(s) prior sp4 to arrival, ASA physical classification: II - mild/mod systemic disease that does not interfere with daily routines, Airway assessment: able to hyperextend neck, able to maintain airway, can open mouth without difficulty, Mallampati classification of tongue size: III - uvula can be visualized, but faucial pillars and soft palate are not appreciated, Monitoring during procedure: school of nursing director, continuous pulse oximetry, nurse at bedside at all times, Medications employed: Etomidate, 40 mg(s), Versed, 5 mg(s), Alternatives to procedural sedation discussed Moderate sedation administered for a large size laceration repair, Post-procedure assessment: the patient is moderately sedated, Pagan sedation score: 4 - brisk response to a light glabellar tap, Respiratory status: requires supplemental oxygen to maintain acceptable oxygen saturation, a reversal agent was not used, Total sedation time 25 minutes, after sedation instructions were provided for the patient.. Laceration: 05:46 Wound Repair of 12cm ( 4.7in ) fascia involved laceration to top of head and forehead. sp4 Irregularly shaped.. Minimal bleeding noted.. Distal neuro/vascular/tendon intact. Anesthesia: Wound infiltrated with 20 mls of 1% lidocaine. Wound prep: Moderate cleansing by me, Copious irrigation. Skin closed with 28 4-0 Silk using interrupted sutures and sterile technique. Dressed with 4x4's, Kerlix. Patient tolerated well. MDM: 01:12 Medical Screening Exam initiated sp4 03:57 ED course: EXAM: CT Chest, Abdomen and Pelvis Without Intravenous Contrast CLINICAL sp4 HISTORY: The patient is 54 years old and is Female; fall, back injury TECHNIQUE: Axial computed tomography images of the chest, abdomen and pelvis without intravenous contrast. Sagittal and coronal reformatted images were created and reviewed. This CT exam was performed using one or more of the following dose reduction techniques: automated exposure control, adjustment of the mA and/or kV according to patient size, and/or use of iterative reconstruction technique. COMPARISON: No relevant prior studies available. FINDINGS: CHEST: LUNGS: Minimal dependent densities in the lung bases are present. The lungs are otherwise well-inflated and clear. PLEURAL SPACE: Unremarkable. No significant effusion. No pneumothorax. HEART: No cardiomegaly. No pericardial effusion. MEDIASTINUM: The distal esophagus is fluid-filled. ABDOMEN: LIVER: Homogeneous without focal mass. GALLBLADDER AND BILE DUCTS: Surgical clips are present in the right upper quadrant, consistent with previous cholecystectomy. PANCREAS: Unremarkable. No ductal dilation. SPLEEN: Unremarkable. ADRENALS: Unremarkable. No mass. KIDNEYS AND URETERS: No obstructing stones. No hydronephrosis. No perinephric fluid. STOMACH AND BOWEL: The stomach is minimally distended with food contents. The small bowel is relatively normal in caliber. Stool is present throughout colon. There is no mucosal thickening or evidence of obstruction. PELVIS: APPENDIX: No findings to suggest acute appendicitis. BLADDER: The bladder is well distended. No stones. REPRODUCTIVE: The patient is status post hysterectomy. CHEST, ABDOMEN and PELVIS: INTRAPERITONEAL SPACE: Trace free fluid is present within the pelvis which is likely physiologic. No free air. BONES/JOINTS: There is no acute fracture of the visualized axial and appendicular skeleton. The vertebral body heights and alignment are maintained. SOFT TISSUES: A tiny fat-containing umbilical hernia is present. VASCULATURE: Calcified phleboliths are present within the pelvis. No aortic aneurysm. LYMPH NODES: Unremarkable. No enlarged lymph nodes. IMPRESSION: No evidence of solid organ injury or traumatic bony findings on this non contrasted CT of the chest, abdomen, and pelvis. ED course: EXAM: CT Head and Cervical Spine Without Intravenous Contrast CLINICAL HISTORY: The patient is 54 years old and is Female; CONFUSED TECHNIQUE: Axial computed tomography images of the head/brain and cervical spine without intravenous contrast. Sagittal and coronal reformatted images were created and reviewed. This CT exam was performed using one or more of the following dose reduction techniques: automated exposure control, adjustment of the mA and/or kV according to patient size, and/or use of iterative reconstruction technique. COMPARISON: No relevant prior studies available. FINDINGS: BRAIN: Unremarkable. No hemorrhage. No significant white matter disease. No edema. VENTRICLES: Unremarkable. No ventriculomegaly. SKULL: No acute fracture. SINUSES: Unremarkable as visualized. No acute sinusitis. MASTOID AIR CELLS: Unremarkable as visualized. No mastoid effusion. VERTEBRAE: Anterolisthesis of C3 on C4 secondary to degenerative facet arthropathy is noted. The vertebral body heights and alignment are otherwise maintained. DISCS/SPINAL CANAL/NEURAL FORAMINA: Evidence of anterior cervical disc fusion at C5-C6 is present. The hardware is engaged. Minimal intervertebral disc space narrowing with osteophyte formation at C4-C5 and C6-C7 is present. There is no significant canal stenosis or neural foraminal narrowing. Facet arthropathy throughout the cervical spine is present. SOFT TISSUES: Laceration to the right frontal scalp is present. LUNG APICES: The lung apices are clear. IMPRESSION: 1. No acute intracranial findings. Right frontal scalp laceration. 2. Spondylosis of the cervical spine without acute findings. Electronically signed by: Ana Rosa Alcocer MD 11/21/2024 02:51 AM. 03:58 ED course: EXAM: XR Right Knee, 3 Views CLINICAL HISTORY: The patient is 54 years old sp4 and is Female; right knee contusion TECHNIQUE: Three views of the right knee. COMPARISON: No relevant prior studies available. FINDINGS: BONES/JOINTS: Unremarkable. No acute fracture. No dislocation. SOFT TISSUES: Unremarkable. IMPRESSION: Normal right knee radiographs. . 20:53 Differential diagnosis: Contusion of Hematoma on Laceration of Intracranial bleed- sp4 Concussion cerebral contusion. Data reviewed: vital signs, nurses notes, lab test result(s), radiologic studies, CT scan, plain films. Consideration of Admission/Observation Escalation of care including admission/observation considered. ED course: On repeat assessment patient also complaining of the right knee pain and tenderness. Right knee radiograph unremarkable. Large size laceration of the right forehead which extended into the right side of the scalp with partial scalping injury was repaired in the emergency room under moderate sedation. Patient stable for discharge home. Sedation instructions provided to the patient. . 11/20 23:56 Order name: CBC with Diff; Complete Time: 04:19 sp4 11/20 23:56 Order name: CMP; Complete Time: 04:19 sp4 11/21 00:54 Order name: CT Chest Abdomen Pelvis W/O Contrast; Complete Time: 04:19 sp4 11/21 00:55 Order name: Knee Right 3 View XRAY; Complete Time: 04:19 sp4 11/21 01:00 Order name: Head C Spine Mpr Wo Con; Complete Time: 04:19 EDMS 11/20 23:56 Order name: IV Saline Lock; Complete Time: 00:33 sp4 11/20 23:56 Order name: Labs collected and sent; Complete Time: 00:33 sp4 11/21 00:16 Order name: Labs - recollect needed: green top; Complete Time: 00:33 kmf Administered Medications: 00:31 Drug: Boostrix Tdap IM 0.5 ml IM once; as a single dose Route: IM; Site: left deltoid; bm8 00:57 Follow up: Response: (VIS) Vaccine information sheet provided today. Questions and/or lg3 concerns addressed. VIS edition date: Mar 28, 2021.; No adverse reaction 00:31 Drug: ceFAZolin IVPB 1 grams IVPB once Route: IVPB; Site: right forearm; bm8 00:56 Follow up: Response: No adverse reaction; IV Status: Completed infusion; IV Intake: lg3 100ml 00:31 Drug: Droperidol IVP 2.5 mg IVP once Route: IVP; Site: right forearm; bm8 00:56 Follow up: Response: No adverse reaction; Marked relief of symptoms lg3 00:32 Drug: TORadol - Ketorolac IVP 15 mg IVP once Route: IVP; Site: right forearm; bm8 00:57 Follow up: Response: No adverse reaction lg3 00:32 Drug: Ondansetron IVP 4 mg IVP once; over 2 minutes Route: IVP; Site: right forearm; bm8 00:57 Follow up: Response: No adverse reaction lg3 00:32 Drug: morphine IVP or IV 4 mg IVP once over 4 mins Route: IVP; Infused Over: 4 mins; bm8 Site: right forearm; 00:57 Follow up: Response: No adverse reaction lg3 02:10 Drug: morphine IVP or IV 4 mg IVP once over 4 mins Route: IVP; Infused Over: 4 mins; bm8 Site: right forearm; 03:38 Follow up: Response: No adverse reaction bm8 02:10 Drug: metoCLOPramide IVP 10 mg IVP once; over 1 to 2 minutes Route: IVP; Site: right bm8 forearm; 03:38 Follow up: Response: No adverse reaction bm8 04:55 Drug: Etomidate IVP 20 mg IVP once Route: IVP; Site: right forearm; bm8 05:52 Follow up: Response: No adverse reaction bm8 05:03 Drug: Midazolam IVP or IV 5 mg IVP once Route: IVP; Site: right forearm; bm8 06:23 Follow up: Response: No adverse reaction bm8 06:00 Drug: HYDROcodone-acetaminophen PO 5 mg-325 mg 2 tabs PO once Route: PO; bm8 06:18 Follow up: Response: No adverse reaction bm8 06:00 Drug: Ondansetron PO 4 mg PO once Route: PO; bm8 06:18 Follow up: Response: No adverse reaction bm8 06:00 Drug: Trimethoprim-Sulfamethoxazole PO (160 mg-800 mg (DS) 1 tablet PO once Route: PO; bm8 06:18 Follow up: Response: No adverse reaction bm8 Disposition Summary: 11/21/24 05:49 Discharge Ordered Notes: Location: Home sp4 Problem: new sp4 Symptoms: have improved sp4 Condition: Stable sp4 Diagnosis - Concussion with loss of consciousness of unspecified duration sp4 - Complex forehead and scalp laceration sp4 Followup: sp4 - With: Private Physician - When: Suture removal After 20 days - Reason: Recheck today's complaints Discharge Instructions: - Discharge Summary Sheet sp4 - Laceration Care, Adult, [id number] sp4 Forms: - Patient Portal Instructions sp4 Prescriptions: - Tramadol 50 mg Oral tablet - take 1 tablet ORAL route every 8 hours as needed; 20 tablet; Refills: 0, sp4 Product Selection Permitted - Bactrim DS 800-160 mg Oral Tablet - take 1 tablet ORAL route every 12 hours for 10 days; 20 tablet; Refills: 0, sp4 Product Selection Permitted - ondansetron 8 mg Oral Tablet,disintegrating - take 1 tablet ORAL route every 8 hours PRN nausea; 30 tablet; Refills: 0, sp4 Product Selection Permitted Signatures: Dispatcher [employer] EDMS Live Heredia, RN RN jb4 Jose Renee MD MD sp4 Paola Webb formerly [facility] Negro Vicente, RN RN bm8 Colleen Ayon RN lg3 Corrections: (The following items were deleted from the chart) 00:55 00:55 Chest Abdomen Pelvis Wo Con+CT.RAD.BRZ ordered. EDMS EDMS 01:00 11/20 23:58 Head Brain Wo Cont+CT.RAD.BRZ ordered. EDMS EDMS
[2024-11-21] MEDS ORDERED: SMZ./TMP. 800/160 MG TABLET ONE (06:03)
[2024-11-21] MEDS ORDERED: HYDROCODONE/APAP 5/325 MG TAB ONE (06:04)
[2024-11-21] MEDS ORDERED: ONDANSETRON 4 MG (ODT) TAB ONE (06:04)
[2024-11-21 06:44] VITALS: TEMP 99
[2024-11-21 06:46] VITALS: BP 149/82; O2SAT 96
== END 2024-11-21 06:22 | disposition home or self-care (01) ==
LOC: ER 23:44
DX: S06.0X9A Concussion with loss of consciousness of unspecified duration, initial encounter (principal); S01.01XA Laceration without foreign body of scalp, initial encounter; S01.81XA Laceration without foreign body of other part of head, initial encounter; W18.00XA Striking against unspecified object with subsequent fall, initial encounter; Y92.015 Private garage of single-family (private) house as the place of occurrence of the external cause; Z23 Encounter for immunization
CPT/HCPCS: 85025; 36415; 80053; 70450; 71250; 72125; 74176; 73562; 90715; 12034; Q0162; J2250; J2003; J2765; J2405; J1790; J0690